=== PATIENT | female | born 1970 | race Caucasian/White ===

== ENCOUNTER 2018-01-21 12:45 | Emergency (ER) | payer OTHER ==
[2018-01-21 13:33] VITALS: BP 112/70; PULSE 74; TEMP 99; BMI 37.2
--- NOTE | 2018-01-21 14:10 | PDOC ---
History of Present Illness - General Chief Complaint: Cold Symptoms Stated Complaint: FLU Time Seen by Provider: 01/21/18 13:32 - History of Present Illness Initial Comments: 01/21/18 14:25 Chief complaint: Flu symptoms History of present illness: Low-grade fever, body aches, congestion, nonproductive cough, nausea without vomiting or diarrhea for 3 days. Mother hospitalized with documented flu Review of systems: No chest pain, shortness of breath, abdominal pain, vomiting or diarrhea, urinary tract symptoms, visual or focal neurologic symptoms, unsteadiness of gait, vaginal bleeding or discharge. Remainder systems reviewed and found to be negative Past medical history: Healthy female, no significant medical or surgical illness , no medications Social/family history reviewed and noncontributory except as noted above Physical exam: Alert and oriented well-developed well-nourished no acute distress cheerful and cooperative Afebrile, vital signs normal HEENT clear Neck supple without bruit mass or nodes Chest clear, full breath sounds bilaterally, no wheezes rales or rhonchi CV S1 and S2 normal without murmur rub or gallop pulses full and symmetric no JVD or edema Abdomen soft nontender without mass or organomegaly Extremities no CCE Skin clear, no rash, adequate turgor and wet mucous membranes Neurological intact Impression: Viral URI, no sign of pneumonia, exposed to influenza Plan: Patient is stable. Tamiflu, cough medication, rest and fluids. Recheck if symptoms worsen. Otherwise follow-up primary physician. Fully ambulatory and in no distress respiratory or otherwise at discharge with family to follow-up as directed Past History - Past Medical History Allergies/Adverse Reactions: Allergies Allergy/AdvReac Type Severity Reaction Status Date / Time No Known Allergies Allergy Verified 01/21/18 13:28 Home Medications: Ambulatory Orders Guaifenesin AC [Robitussin-AC] 1 - 2 tsp PO Q4HWA PRN #90 ml MDD 8 01/21/18 Oseltamivir Phosphate [Tamiflu] 75 mg PO BID #10 capsule 01/21/18 Anemia: No Asthma: No Cancer: No Cardiac Disorders: No CVA: No COPD: No CHF: No Dementia: No Diabetes: No GI Disorders: Yes (GERD) Disorders: No HTN: Yes Hypercholesterolemia: No Liver Disease: No Seizures: No Thyroid Disease: No - Surgical History Abdominal Surgery: Yes (S/P LAP BAND) Appendectomy: No Cardiac Surgery: No Cholecystectomy: No Lung Surgery: No Neurologic Surgery: No Orthopedic Surgery: No - Suicide/Smoking/Psychosocial Hx Smoking History: Never smoked Hx Alcohol Use: No Drug/Substance Use Hx: No Substance Use Type: None Hx Substance Use Treatment: No *Physical Exam - Vital Signs Last Vital Signs Temp Pulse Resp BP Pulse Ox 99.0 F 74 16 112/70 97 01/21/18 13:09 01/21/18 13:09 01/21/18 13:01/21/18 13:01/21/18 13:09 *DC/Admit/Observation/Transfer Diagnosis at time of Disposition: Influenza - Discharge Dispostion Disposition: HOME Condition at time of disposition: Stable Admit: No - Prescriptions Prescriptions: Guaifenesin AC [Robitussin-AC] 1 - 2 tsp PO Q4HWA PRN #90 ml MDD 8 PRN Reason: Cough Oseltamivir Phosphate [Tamiflu] 75 mg PO BID #10 capsule - Referrals Referrals: Marshall Lee MD [Primary Care Provider] - 2 Days - Patient Instructions Printed Discharge Instructions: DI for Viral Upper Respiratory Infection -- Adult - Post Discharge Activity
== END 2018-01-21 14:47 | disposition home or self-care (01) ==
LOC: FER 12:45
DX: J10.1 Influenza due to other identified influenza virus with other respiratory manifestations (principal); Z98.84 Bariatric surgery status; I10 Essential (primary) hypertension; K21.9 Gastro-esophageal reflux disease without esophagitis
CPT/HCPCS: 99281-25

== ENCOUNTER 2018-05-02 15:50 | Emergency (ER) | payer OTHER ==
[2018-05-02 15:53] VITALS: BP 126/87; PULSE 65; TEMP 99; BMI 36.5
[2018-05-02] MEDS ORDERED: DIPHTH,PERTUSS(ACELL),TET 0.5 ML DISP.SYRIN IM ONE (16:02)
--- NOTE | 2018-05-02 16:05 | PDOC ---
Attending Attestation - HPI HPI: 05/02/18 16:28 The patient is a 48 year old female with a significant PMH of hypertension, GERD , obesity and a recent peripheral vascular procedure in her left leg who presents to the emergency department with a puncture wound in her left foot. The patient reports that she was at home cleaning outdoors earlier today when she stepped on a arcenio nail. The patient reports that the nail went through her shoe and into her foot. She reports that she proceeded to take the nail out of her foot and came into the ER. the patent denies any pain at time of exam. She reports that she does not recall when her last tetanus shot was. The patient also reports some non associated nerve pain in her leg secondary to her recent left leg procedure. The patient denies any other symptoms. She denies any fever , chills, nausea, vomit, diarrhea, constipation or urinary symptoms. She denies any numbness, weakness, or tingling sensation. She denies any chest pain, shortness of breath, headache and dizziness. The patient denies any other complaints Documentation prepared by Danny Corbin, acting as medical territory manager for Ratna Alanis MD. <Danny Corbin - Last Filed: 05/02/18 16:28> - Resident Resident Name: Ramos Kelly - ED Attending Attestation I have performed the following: I have examined & evaluated the patient, The case was reviewed & discussed with the resident, I agree w/resident's findings & plan, Exceptions are as noted - Physicial Exam PE: 05/02/18 16:30 Awake alert no acute distress lung exam is normal cardiac exam is regular without any murmurs rubs or gallops extremity exam left foot plantar surface noted for a small puncture wound near the lateral arch of the foot no active bleeding no surrounding erythema mild tenderness to palpation no bony deformities or ecchymosis neurovascularly intact - Medical Decision Making 05/02/18 16:31 Plan x-ray to rule out foreign body. Tetanus, will soak the patient's foot and recommend daily or twice daily soaks and antibiotic coverage with ciprofloxacin warning signs to return for infection <Ratna Alanis - Last Filed: 05/02/18 16:32>
--- NOTE | 2018-05-02 16:12 | PDOC ---
History of Present Illness - General Chief Complaint: Wound Stated Complaint: STEPPED ON NAIL Time Seen by Provider: 05/02/18 16:02 - History of Present Illness Initial Comments: 05/02/18 16:04 48 yo F w/ a hx of peripheral vascular disease is here after she stepped on a arcenio nail with her left foot while doing yardwork around the house. She came to the ER right after she stepped on the nail. She said the nail was long and arcenio and went right through her foot. She denies any current pain to the puncture site but does not know the last time she updated her tetanus shot. She has not had any recent fevers or infections. 05/02/18 16:13 Past History - Past Medical History Allergies/Adverse Reactions: Allergies Allergy/AdvReac Type Severity Reaction Status Date / Time No Known Allergies Allergy Verified 05/02/18 15:51 Home Medications: Ambulatory Orders Aspirin [ASA -] 81 mg PO DAILY 05/02/18 Ciprofloxacin [Cipro -] 500 mg PO Q12H 7 Days #14 tablet 05/02/18 Anemia: No Asthma: No Cancer: No Cardiac Disorders: No CVA: No COPD: No CHF: No Dementia: No Diabetes: No GI Disorders: Yes (GERD) Disorders: No HTN: Yes Hypercholesterolemia: No Liver Disease: No Seizures: No Thyroid Disease: No - Surgical History Abdominal Surgery: Yes (S/P LAP BAND) Appendectomy: No Cardiac Surgery: No Cholecystectomy: No Lung Surgery: No Neurologic Surgery: No Orthopedic Surgery: No - Suicide/Smoking/Psychosocial Hx Smoking History: Never smoked Hx Alcohol Use: No Drug/Substance Use Hx: No Substance Use Type: None Hx Substance Use Treatment: No Review of Systems - Review of Systems Comments:: 05/02/18 16:12 Left Foot: Small puncture wound about 1/4 cm SKIN: Absent: rash, itching, pallor CONSTITUTIONAL: Absent: fever, chills, diaphoresis, generalized weakness, malaise, loss of appetite HEENT: Absent: rhinorrhea, nasal congestion, throat pain, throat swelling, difficulty swallowing, mouth swelling, ear pain, eye pain, visual Changes CARDIOVASCULAR: Absent: chest pain, syncope, palpitations, irregular heart rate, lightheadedness , peripheral edema RESPIRATORY: Absent: cough, shortness of breath, dyspnea with exertion, orthopnea, wheezing, stridor, hemoptysis GASTROINTESTINAL: Absent: abdominal pain, abdominal distension, nausea, vomiting, diarrhea, constipation, melena, hematochezia GENITOURINARY: Absent: dysuria, frequency, urgency, hesitancy, hematuria, flank pain, genital pain MUSCULOSKELETAL: Absent: myalgia, arthralgia, joint swelling HEMATOLOGIC/IMMUNOLOGIC: Absent: easy bleeding, easy bruising, lymphadenopathy, frequent infections ENDOCRINE: Absent: unexplained weight gain, unexplained weight loss, heat intolerance, cold intolerance NEUROLOGIC: Absent: headache, focal weakness or paresthesias, dizziness, unsteady gait, seizure, mental status changes, bladder or bowel incontinence PSYCHIATRIC: Absent: anxiety, depression, suicidal or homicidal ideation, hallucinations. *Physical Exam - Vital Signs Last Vital Signs Temp Pulse Resp BP Pulse Ox 99.0 F 65 18 126/87 100 05/02/18 15:50 05/02/18 15:50 05/02/18 15:50 05/02/18 15:50 05/02/18 15:50 - Physical Exam Comments: 05/02/18 16:13 Left Foot: There is a 1/4 cm puncture wound from the nail. The puncture wound is not erythematous, swollen, or painful to touch. She has full sensation in her foot, full strength, and full ROM. Left Leg: she has pain on medial palpation of the tibia as a result of a prior PVD operation for which she has chronic nerve pain. The pain has been there for months and is not related to the puncture wound. GENERAL: Well developed, well nourished. Awake and alert. No acute distress. HEENT: Normocephalic, atraumatic. PERRLA, EOMI. No conjunctival pallor. Sclera are non- icteric. Moist mucous membranes. Oropharynx is clear. NECK: Supple. Full ROM. No JVD. Carotid pulses 2+ and symmetric, without bruits. No thyromegaly. No lymphadenopathy. CARDIOVASCULAR: Regular rate and rhythm. No murmurs, rubs, or gallops. Distal pulses are 2+ and symmetric. PULMONARY: No evidence of respiratory distress. Lungs clear to auscultation bilaterally. No wheezing, rales or rhonchi. ABDOMINAL: Soft. Non-tender. Non-distended. No rebound or guarding. No organomegaly. Normoactive bowel sounds. MUSCULOSKELETAL Normal range of motion at all joints. No bony deformities or tenderness. No CVA tenderness. EXTREMITIES: No cyanosis. No clubbing. No edema. No calf tenderness. SKIN: Warm and dry. Normal capillary refill. No rashes. No jaundice. NEUROLOGICAL: Alert, awake, appropriate. Cranial nerves 2-12 intact. No deficits to light touch and temperature in face, upper extremities and lower extremities. No motor deficits in the in face, upper extremities and lower extremities. Normoreflexic in the upper and lower extremities. Normal speech. Toes are down- going bilaterally. Gait is normal without ataxia. PSYCHIATRIC: Cooperative. Good eye contact. Appropriate mood and affect. Medical Decision Making - Medical Decision Making 05/02/18 16:16 48 yo F here with puncture wound while doing yard work. The wound is clean and without erythema. She has no pain in her foot. She has full strength, ROM, and sensation in her Left foot. Plan: soak L foot in warm water, xray to assess for foreign body, tetanus shot, and give antibiotics. *DC/Admit/Observation/Transfer Diagnosis at time of Disposition: Punctured skin - Discharge Dispostion Disposition: HOME Condition at time of disposition: Good Decision to Admit order: No - Prescriptions Prescriptions: Ciprofloxacin [Cipro -] 500 mg PO Q12H 7 Days #14 tablet - Referrals - Patient Instructions Printed Discharge Instructions: DI for Puncture Wound Additional Instructions: you should soak her foot twice daily in warm soapy water. Take ciprofloxacin 500 mg twice daily 1 week. He can take Motrin 400 mg every 8 hours as needed for pain. Return for redness swelling or drainage from the wound or any signs of infection. Follow up with the primary doctor as needed. Were given a tetanus shot today which will cover U for 10 years - Post Discharge Activity
== END 2018-05-02 16:40 | disposition home or self-care (01) ==
LOC: FER 15:50
PROC: 3E0234Z Introduction of Serum, Toxoid and Vaccine into Muscle, Percutaneous Approach (ICD-10-PCS; principal; 2018-05-02)
DX: S91.332A Puncture wound without foreign body, left foot, initial encounter (principal); W45.0XXA Nail entering through skin, initial encounter; Y93.9 Activity, unspecified; Y92.9 Unspecified place or not applicable; I10 Essential (primary) hypertension; K21.9 Gastro-esophageal reflux disease without esophagitis; E66.9 Obesity, unspecified; Z68.36 Body mass index [BMI] 36.0-36.9, adult
CPT/HCPCS: 73630-TC-LT; 90715; 99282-25

== ENCOUNTER 2020-05-25 17:19 | Emergency (ER) | payer OTHER ==
[2020-05-25 17:30] VITALS: BP 144/72; PULSE 69; TEMP 98; BMI 41.0
--- NOTE | 2020-05-25 17:38 | PDOC ---
History of Present Illness - General Chief Complaint: Pain, Acute Stated Complaint: LEFT TOE PAIN Time Seen by Provider: 05/25/20 17:37 History Source: Patient Exam Limitations: No Limitations Past History - Medical History Allergies/Adverse Reactions: Allergies Allergy/AdvReac Type Severity Reaction Status Date / Time No Known Allergies Allergy Verified 05/25/20 17:20 Home Medications: Ambulatory Orders Aspirin [ASA -] 81 mg PO DAILY 05/02/18 Ciprofloxacin [Cipro -] 500 mg PO Q12H 7 Days #14 tablet 05/02/18 Anemia: No Asthma: No Cancer: No Cardiac Disorders: No CVA: No COPD: No CHF: No Dementia: No Diabetes: No GI Disorders: Yes (GERD) Disorders: No HTN: Yes Hypercholesterolemia: No Liver Disease: No Seizures: No Thyroid Disease: No - Surgical History Abdominal Surgery: Yes (S/P LAP BAND) Appendectomy: No Cardiac Surgery: No Cholecystectomy: No Lung Surgery: No Neurologic Surgery: No Orthopedic Surgery: No - Psycho-Social/Smoking History Smoking History: Never smoked - Substance Abuse Hx (Audit-C & DAST Scrn) How often the patient has a drink containing alcohol: Never Score: In Men: 4 or > Positive; In Women: 3 or > Positive: 0 Screen Result (Pos requires Nsg. Audit-10AR): Negative In the last yr the pt used illegal drug/Rx for NonMed reason: No Score: Yes response is considered Positive: 0 Screen Result (Positive result requires Nsg. DAST-10): Negative *Physical Exam - Vital Signs Last Vital Signs Temp Pulse Resp BP Pulse Ox 98.0 F 69 17 144/72 100 05/25/20 17:19 05/25/20 17:19 05/25/20 17:19 05/25/20 17:19 05/25/20 17:19 Discharge - Discharge Information Problems reviewed: Yes Clinical Impression/Diagnosis: Foot pain, right, Toe pain, right Condition: Good Disposition: HOME - Admission No - Follow up/Referral Referrals: Marshall Lee MD [Staff Physician] - - Patient Discharge Instructions Patient Printed Discharge Instructions: DI for Foot Pain Additional Instructions: You were seen in the ER today for right foot pain. The results of your imaging today did not show any fracture. Please follow-up with your primary care doctor and orthopedics (Dr. Johnson) within 1-2 days to discuss your visit and make sure your symptoms have improved. Please return to the ER if you have any worsening pain, development of fevers or chills, loss of consciousness, inability to tolerate food or fluids, or any other concerns. You can take tylenol or motrin every 4-6 hours as needed for pain. - Post Discharge Activity
--- NOTE | 2020-05-25 17:42 | PDOC ---
Attending Attestation - Resident Resident Name: Silvina Arguello - HPI HPI: 05/25/20 18:07 Pt presents to the ED complaining of pain and swelling to the R great toe after mechanical fall. PAtient is able to weight bear and denies other injuries. - Physicial Exam PE: 05/25/20 18:14 Agree with resident exam. Patient is alert and oriented and in no acute distress. L great toe: + tenderness over the proximal phalange. No deformity. No wounds. Intact cap refil. - Medical Decision Making 05/25/20 18:20 Pt presents to the ED complaining of L great toe pain after mechanical fall without other injuries. Concern for fracture. Will check xray and reassess. Discharge - Discharge Information Problems reviewed: Yes Clinical Impression/Diagnosis: Foot pain, right, Toe pain, right Condition: Good Disposition: HOME - Follow up/Referral Referrals: Marshall Lee MD [Primary Care Provider] - - Patient Discharge Instructions Patient Printed Discharge Instructions: DI for Foot Pain Additional Instructions: You were seen in the ER today for right foot pain. The results of your imaging today did not show any fracture. Please follow-up with your primary care doctor and orthopedics (Dr. Johnson) within 1-2 days to discuss your visit and make sure your symptoms have improved. Please return to the ER if you have any worsening pain, development of fevers or chills, loss of consciousness, inability to tolerate food or fluids, or any other concerns. You can take tylenol or motrin every 4-6 hours as needed for pain. - Post Discharge Activity
[2020-05-25] MEDS ORDERED: ACETAMINOPHEN 325 MG TABLET (FP) PO ONE (17:55)
[2020-05-25] MEDS ORDERED: ACETAMINOPHEN 325 MG TABLET (FP) ONE (18:04)
== END 2020-05-25 19:24 | disposition home or self-care (01) ==
LOC: FER 17:19 → SUPCPDRO 17:19 → FER 19:24
DX: M79.671 Pain in right foot (principal); M79.675 Pain in left toe(s)
CPT/HCPCS: 73610-TC-RT-FY; 73630-TC-RT-FY; 99283-25